=== PATIENT | male | born 1995 | race Caucasian/White ===

== ENCOUNTER 2024-09-30 15:20 | Emergency (ER) | payer OTHER ==
[~2024-09-30] VITALS: Ht 172.7 cm; Wt 55.0 kg
[2024-09-30 15:22] VITALS: O2SAT 98
[2024-09-30] MEDS: SODIUM CHLORIDE 0.9% 1,000 ML IV ONE (15:53)
[2024-09-30] MEDS: LEVETIRACETAM 1000MG PREMIX 100 ML IV ONE (15:53)
[2024-09-30] MEDS: KETOROLAC 30MG/ML VIAL IV ONE (16:42)
[2024-09-30] MEDS ORDERED: LEVE10006 MT (17:30)
[2024-09-30 18:00] VITALS: BP 120/77; PULSE 95; RESP 16; TEMP 37.1; O2SAT 98
== END 2024-09-30 22:29 | disposition home or self-care (01) ==
LOC: ER 15:20
DX: R56.9 Unspecified convulsions (principal)
CPT/HCPCS: 96365; 96375; 99284; J1953; J1885; J7030; Z7610; A4606